=== PATIENT | male | born 1965 | race Hispanic/Latino ===

== ENCOUNTER 2019-10-31 11:54 | Day surgery (SDC) | payer MEDICAID ==
--- NOTE | 2019-10-31 13:26 | Anesthesia Day of Surgery ---
Anesthesia Day of Surgery - Day of Surgery Patient Examined: Yes Patient H&P Reviewed: Yes Patient is NPO: Yes
--- NOTE | 2019-10-31 13:28 | Anesthesia Consultation ---
Anesthesia Consult and Med Hx Date of service: 10/31/19 - Airway Anesthetic Teeth Evaluation: Good (Missing) ROM Head & Neck: Adequate Mental/Hyoid Distance: Adequate Mallampati Class: Class II Intubation Access Assessment: Probably Good - Pre-Operative Health Status ASA Pre-Surgery Classification: ASA3 Proposed Anesthetic Plan: MAC - Central Nervous System Hx Seizures: Yes Hx Psychiatric Problems: Yes (Anxiety) - Gastrointestinal Hx Gastroesophageal Reflux Disease: Yes - Endocrine Hx Non-Insulin Dependent Diabetes: Yes - Other Systems Hx Alcohol Use: Yes - Additional Comments Anesthesia Medical History Comments: Halfway Resident
[2019-10-31] MEDS ORDERED: SODIUM CHLORIDE 0.9% 1000 ML 1,000 ML IV SCH (13:30)
[2019-10-31] MEDS ORDERED: PROPOFOL 200 MG/20 ML VIAL IV ONE ×2 (14:26)
--- NOTE | 2019-10-31 15:34 | Post Anesthesia Evaluation ---
- Post Anesthesia Evaluation Patient Participated: Yes Airway Patent: Yes Stable Respiratory Function: Yes Nausea/Vomiting: No Temp > 96.8F: Yes Pain Manageable: Yes Adequeate Hydration: Yes Anesthesia Complications: No
[2019-10-31 15:39] VITALS: BP 127/91
--- NOTE | 2019-10-31 18:08 | Operative Report ---
Operative Report Operative Report: Procedure: Colonoscopy Attending physician: Justin Sierra MD Cooker Syrup: Justin Sierra MD Indication: Patient is a 54-year-old male who presents for colonoscopy because of personal history of recurrent rectal bleeding with abdominal pain, constipation and change in bowel habits. A colonoscopy serves to evaluate patient so that treatment may be directed based on the findings. Consent: Informed consent was obtained after advising the patient and family regarding nature of this procedure, its indications, potential benefits as well as possible complications including but not limited to bleeding perforation and adverse reaction to medication, infection as well as other cardiopulmonary complications. An informed written and verbal consent was then obtained after due opportunity was provided for questions and answers. Monitoring: Patient was monitored continuously with pulse oximetry and elec trocardiographic recordings as well as blood pressure recordings. Vital signs remained stable throughout this procedure with no untoward events. Preoperative assessment: Patient was assessed immediately prior to this procedure for capacity to tolerate monitored anesthesia care and moderate sedation as well as general anesthesia. Patient's ASA classification is 3, Mallampati class is 2, Hyomental distance is 3. Instrument: Olympus video colonoscope Medications: Propofol given intravenously in divided doses. For details please refer to anesthesia records. Description of procedure: Patient was placed in the left lateral decubitus position after achieving sedation, a digital rectal examination was performed following which the colonoscope was introduced into the anal verge and advanced to the cecum which was identified by the cecal valve, the appendiceal orifice, as well as by the cecal strap and direct transillumination. The colonoscope was subsequently withdrawn with careful inspection of all mucosal surfaces. Patient tolerated this procedure well and was subsequently taken to the recovery room. The following findings were noted. Findings: The colonic preparation was adequate. The Convoy prep scale score was 6. Patient had diverticulosis of mild severity involving the sigmoid and descending colon. The rest of the colon to the cecum was normal. On the retroflex view at the anal verge, patient had internal hemorrhoids. Impression: Colonic diverticulosis Internal hemorrhoids. Plan: Follow pathology report. High-fiber diet. Repeat colonoscopy in 10 years
== END 2019-10-31 11:55 | disposition home or self-care (01) ==
LOC: GIO 11:54
PROVIDERS: ATTEND Internal Medicine Gastroenterology
DX: R10.84 Generalized abdominal pain (principal); K62.5 Hemorrhage of anus and rectum; R19.4 Change in bowel habit; K57.30 Diverticulosis of large intestine without perforation or abscess without bleeding; K64.8 Other hemorrhoids; F41.9 Anxiety disorder, unspecified; K21.9 Gastro-esophageal reflux disease without esophagitis; E11.9 Type 2 diabetes mellitus without complications; F17.210 Nicotine dependence, cigarettes, uncomplicated; Z72.89 Other problems related to lifestyle; Z79.899 Other long term (current) drug therapy; Z98.890 Other specified postprocedural states
CPT/HCPCS: 45378; 82962; J2704